=== PATIENT | female | born 2000 | race Caucasian/White ===

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

== ENCOUNTER 2018-07-10 13:13 | Emergency (ER) | payer BC, OTHER ==
[~2018-07-10] VITALS: Ht 175.3 cm; Wt 111.5 kg
[~2018-07-10 13:13] MED LIST changes: +CYCL10TA7 PO
[2018-07-10 13:31] VITALS: BP 139/74; PULSE 102; RESP 20; Ht 175.3 cm; Wt 111.5 kg
[2018-07-10] MEDS ORDERED: PROM6.2515 PO (15:47)
[2018-07-10] MEDS ORDERED: NAPR-985 PO (15:47)
[2018-07-10] MEDS ORDERED: PSEU-79 PO (15:47)
--- NOTE | 2018-07-10 15:53 | ERD ---
ER Documentation Chief Complaint Chief Complaint Complains of bilateral ear painx 3 days HPI 17-year-old female presents with bilateral ear pain times 3 days. Patient has congested. Patient had tactile fevers at home. She took ibuprofen earlier today. Has a dry cough. Denies medical problems. NKDA. Surgical history denies. Social history denies ROS All systems reviewed and are negative except as per history of present illness. Medications Home Meds Active Scripts Naproxen* (Naprosyn*) 500 Mg Tablet, 500 MG PO BID PRN for PAIN AND/OR INFLAMMATION, #30 TAB Prov:BRITTANY GARCIA PA-C 07/10/18 Promethazine Hcl* (Promethazine Hcl* Syrup) 6.25 Mg/5 Ml Syrup, 6.25 MG PO Q6H PRN for COUGH, #100 ML Prov:BRITTANY GARCIA PA-C 07/10/18 Pseudoephedrine Hcl* (Suphedrin*) 30 Mg Tablet, 30 MG PO Q6 PRN for CONGESTION, #30 TAB Prov:BRITTANY GARCIA PA-C 07/10/18 Ibuprofen* (Motrin*) 600 Mg Tab, 600 MG PO Q6, #30 TAB Prov:ANNAKYRA 12/29/17 Cyclobenzaprine Hcl* (Cyclobenzaprine Hcl*) 10 Mg Tablet, 10 MG PO TID, #15 TAB Prov:DEBBY SALAS PA-C 01/27/17 Ibuprofen* (Motrin*) 600 Mg Tab, 600 MG PO Q6H PRN for PAIN AND OR ELEVATED TEMP, #30 TAB Prov:DEBBY SALAS PA-C 01/27/17 Ibuprofen* (Motrin*) 600 Mg Tab, 600 MG PO Q8 for 10 Days, #30 TAB 0 Refills Prov:ESE GIRARD PA-C 03/03/16 Ondansetron Hcl* (Zofran* ODT) 4 mg -ODT Tab.disper, 4 MG PO Q6 PRN for NAUSEA AND/OR VOMITING, #10 TAB Prov:VITALIY SERRANO 06/07/15 Metronidazole* (Flagyl*) 500 Mg Tablet, 500 MG PO TID for 5 Days, TAB Prov:VITALIY SERRANO S. 06/07/15 Ciprofloxacin Hcl* (Ciprofloxacin Hcl*) 500 Mg Tablet, 500 MG PO BID for 5 Days, TAB Prov:VITALIY SERRANO 06/07/15 Allergies Allergies: Coded Allergies: No Known Allergy (Verified , 12/19/14) PMhx/Soc Medical and Surgical Hx: pt denies Medical Hx, pt denies Surgical Hx History of Surgery: No Anesthesia Reaction: No Hx Neurological Disorder: No Hx Respiratory Disorders: No Hx Cardiac Disorders: No Hx Psychiatric Problems: No Hx Miscellaneous Medical Probl: No Hx Alcohol Use: No Hx Substance Use: No Hx Tobacco Use: No Smoking Status: Never smoker FmHx Family History: No diabetes, No coronary disease, No other Physical Exam Vitals Vital Signs Date Temp Pulse Resp B/P (MAP) Pulse Ox O2 O2 Flow FiO2 Time Delivery Rate 07/10/18 98.9 102 20 139/74 99 13:31 (95) Physical Exam GENERAL: The patient is well-appearing, well-nourished, in no acute distress HEENT: Atraumatic. Conjunctivae are pink. Pupils equal, round, and reactive to light. There is no scleral icterus. Tympanic membranes clear bilaterally. Oropharynx clear. NECK: C-spine is soft and supple. There is no meningismus. There is no cervical lymphadenopathy. CHEST: Clear to auscultation bilaterally. There are no rales, wheezes or rhonchi. HEART: Regular rate and rhythm. No murmurs, clicks, rubs or gallops. Procedures/MDM MDM: 17-year-old female presenting with URI symptoms. Patient symptoms consis tent with viral URI and will be discharged with supportive medications. I do not feel patient requires antibiotics. Patient is discharged stricter precautions and told to follow-up with primary care within 1-2 days for close evaluation. Patient is told if symptoms change or worsen to return immediate the ER. All questions answered at discharge Departure Diagnosis: Primary Impression: URI (upper respiratory infection) Condition: Stable Patient Instructions: Uri, Viral, No Abx (Adult) Additional Instructions: FOLLOW UP WITH YOUR PRIMARY CARE PHYSICIAN TOMORROW.Return to this facility if you are not improving as expected. BRITTANY GARCIA PA-C Jul 10, 2018 15:53
== END 2018-07-10 16:03 | disposition home or self-care (01) ==
LOC: FTE 13:13
DX: J06.9 Acute upper respiratory infection, unspecified (principal)
CPT/HCPCS: 99283